=== PATIENT | male | born 1965 | race Caucasian/White ===

== ENCOUNTER 2021-04-26 05:17 | Emergency (ER) | payer OTHER ==
[~2021-04-26] VITALS: Ht 180.3 cm; Wt 81.6 kg
[2021-04-26 07:23] LABS: Basophils # (auto) 0 10 ^3/uL (0-0.2); Basophils % (auto) 0.4 % (0.0-2.0); Eosinophils # (auto) 0 10 ^3/uL (0-0.8); Eosinophils % (auto) 0.1 % (0.0-7.0); Hematocrit 32.8 % (41.0-53.0); Hemoglobin 11.6 g/dL (13.5-17.5); Lymphocytes # (auto) 1.4 10 ^3/uL (0.4-5.4); Mean Corpuscular Hemoglobin 32.5 pg (28.0-32.0); Mean Corpuscular Hgb Conc. 35.2 g/dL (32.0-36.0); Mean Corpuscular Volume 92.2 fL (80.0-100.0); Monocytes # (auto) 1.5 10 ^3/uL (0-1.3); Monocytes % (auto) 10.8 % (0.0-12.0); Neutrophils # (auto) 10.7 10 ^3/uL (1.6-8.6); Neutrophils % (auto) 78.7 % (37.0-80.0); Red Blood Cells 3.56 10^6/uL (4.5-5.90); Red Cell Distribution Width 12.8 % (11.8-14.3); White Blood Cell 13.7 10^3/uL (4.4-10.8)
[2021-04-26 07:52] LABS: Urine WBC None Seen /hpf (0 - 3)
[2021-04-26] MEDS ORDERED: DONNATAL 5ml ORAL Elix (BELLADONNA ALK-PHENOBARB) PO ONE (08:00)
[2021-04-26] MEDS ORDERED: ALUM & MAG HYDROX-SIMETH LIQ(MAALOX) 30 ML PO ONE (08:00)
[2021-04-26] MEDS ORDERED: SODIUM CHLORIDE 0.9% 1,000 ML IVB ONE (08:00)
[2021-04-26] MEDS ORDERED: PANTOPRAZOLE 40 MG TAB PO ONE (08:00)
[2021-04-26 08:02] LABS: Albumin 2.7 g/dL (3.4-5.0)
[2021-04-26 08:08] LABS: BUN/Creatinine Ratio 78.3; Bilirubin, Total 0.5 mg/dL (0.2-1.0); Total Protein 5.3 g/dL (6.4-8.2)
[2021-04-26 08:18] LABS: Urine Bacteria NONE SEEN /hpf (None Seen); Urine Blood Negative /uL (Negative); Urine Specific Gravity 1.019 (1.001-1.035)
[2021-04-26 09:06] LABS: Magnesium 1.9 mg/dL (1.6-2.6)
[2021-04-26] MEDS ORDERED: FOLIC ACID 1 MG, MULTIPLE VITAMIN 10 ML, MAGNESIUM SULF SDV 50% 8 MEQ, THIAMINE INJ 100... INJ SCH ×5 (12:00)
[2021-04-26] MEDS ORDERED: SODIUM CHLORIDE 0.9% 1,000 ML IV ONE (12:45)
[2021-04-26 14:10] LABS: Magnesium 2.6 mg/dL (1.6-2.6)
[2021-04-26 20:51] LABS: Alcohol, Urine < 3.0 mg/dL (0-10); Amphetamine Screen, Urine NEGATIVE (NEGATIVE); Barbiturate Scree,Urine NEGATIVE (NEGATIVE); Benzodiazephine Screen, Urine NEGATIVE (NEGATIVE); Cannabinoid Screen, Urine NEGATIVE (NEGATIVE); Cocaine Screen, Urine NEGATIVE (NEGATIVE); Opiate Scree,Urine NEGATIVE (NEGATIVE); Phencyclidine Screen, Urine NEGATIVE (NEGATIVE)
[2021-04-27 03:00] VITALS: BP 93/61
== END 2021-04-27 03:45 | disposition short-term general hospital (02) ==
LOC: ER 05:17 → EDBD 05:17 → ER 04-27 03:45
DX: R53.1 Weakness (principal); R73.9 Hyperglycemia, unspecified; F10.10 Alcohol abuse, uncomplicated; R77.8 Other specified abnormalities of plasma proteins; E44.0 Moderate protein-calorie malnutrition; R11.2 Nausea with vomiting, unspecified; F17.210 Nicotine dependence, cigarettes, uncomplicated; Y90.0 Blood alcohol level of less than 20 mg/100 ml; Z68.25 Body mass index [BMI] 25.0-25.9, adult
CPT/HCPCS: 36415; 71046; 80053; 80307; 81001; 83605; 83690; 83735; 83880; 84443; 84484; 85025; 93005; 96361; 96365; 99285; J3411; J3475; J7030

== ENCOUNTER 2024-07-26 12:31 | Inpatient (IN) | payer OTHER ==
[~2024-07-26] VITALS: Ht 185.4 cm; Wt 90.5 kg
[2024-07-26 13:10] LABS: Basophils # (auto) 0.1 10 ^3/uL (0-0.2); Eosinophils # (auto) 0 10 ^3/uL (0-0.8); Hematocrit 51.3 % (41.0-53.0); Neutrophils # (auto) 8.2 10 ^3/uL (1.6-8.6); Nucleated Red Blood Cells % 0.1 %; White Blood Cell 9.9 10^3/uL (4.4-10.8)
[2024-07-26 13:11] LABS: Basophils % (auto) 0.6 % (0.0-2.0); Hemoglobin 17.9 g/dL (13.5-17.5); Lymphocytes % (auto) 9.9 % (10.0-50.0); Mean Corpuscular Hemoglobin 34.3 pg (28.0-32.0); Mean Corpuscular Hgb Conc. 34.9 g/dL (32.0-36.0); Mean Corpuscular Volume 98.4 fL (80.0-100.0); Monocytes # (auto) 0.6 10 ^3/uL (0-1.3); Monocytes % (auto) 6.6 % (0.0-12.0); Neutrophils % (auto) 82.9 % (37.0-80.0); Platelet Count (auto) 284 10^3/uL (140-450); Red Blood Cells 5.21 10^6/uL (4.5-5.90); Red Cell Distribution Width 13.2 % (11.8-14.3)
[2024-07-26 13:15] LABS: Urine Bacteria None Seen /hpf (None Seen)
[2024-07-26 13:25] LABS: Alanine Aminotransferase 26 U/L (7-40); Albumin 4.6 g/dL (3.2-4.8); Alkaline Phosphatase 102 U/L (46-116); Anion Gap 5 (5-15); Aspartate Aminotransferase 23 U/L (13-40); BUN/Creatinine Ratio 14.3 (10.0-20.0); Bilirubin, Total 0.8 mg/dL (0.2-1.0); Blood Alcohol < 3.0 mg/dL (<10); Blood Urea Nitrogen 13 mg/dL (9-23); Calcium 10.1 mg/dL (8.7-10.4); Carbon Dioxide 30 mmol/L (20-31); Chloride 102 mmol/L (98-107); Glucose 125 mg/dL (74-106); Potassium 4.6 mmol/L (3.5-5.1); Sodium 137 mmol/L (136-145); Total Protein 7.6 g/dL (5.7-8.2)
[2024-07-26 13:36] LABS: Urine Blood Negative /uL (Negative); Urine Clarity Clear (Clear); Urine Color Yellow (Yellow); Urine Mucus FEW (None Seen); Urine Protein, UAD TRACE (Negative); Urine Specific Gravity 1.025 (1.001-1.035); Urine Urobilinogen Normal (Negative); Urine WBC 2 /hpf (0 - 3)
[2024-07-26 13:43] LABS: Lipase 28 U/L (12-53)
[2024-07-26] MEDS: SODIUM CHLORIDE 0.9% 1,000 ML IVB ONE (14:24)
[2024-07-26] MEDS: PANTOPRAZOLE 40 MG/10 ML VIAL INJ IV ONE (14:24)
[2024-07-26] MEDS: PROCHLORPERAZINE EDISYLATE 5 MG/ML 2ML VIAL IV ONE (14:24)
[2024-07-26 15:33] VITALS: TEMP 98.1; O2SAT 98
[2024-07-26] MEDS: MORPHINE SULFATE 4 MG/ML SYR/VIAL IV ONE (15:47)
[2024-07-26 16:20] VITALS: BP 106/76; PULSE 78; RESP 20
[2024-07-26] MEDS ORDERED: MORPHINE SULFATE INJ 2 MG/ml SYRG IV PRN (16:45)
[2024-07-26] MEDS ORDERED: HYDROcodone-ACET 5/325MG TAB PO PRN (16:45)
[2024-07-26] MEDS ORDERED: ACETAMINOPHEN 325 MG TAB PO PRN (16:45)
[2024-07-26] MEDS ORDERED: ONDANSETRON HCL 4 MG/2 ML VIAL IV PRN (16:45)
[2024-07-26] MEDS ORDERED: SUCRALFATE 1 GM/10 ML ORAL SUSP GT SCH (17:00)
[2024-07-26] MEDS ORDERED: PANTOPRAZOLE 40 MG/10 ML VIAL INJ IV SCH (22:00)
== END 2024-07-26 18:34 | disposition left against medical advice (07) | DRG 392 ==
LOC: ER 12:31 → OVERFLOW 16:46
PROVIDERS: ADMIT Internal Medicine; ATTEND Internal Medicine
DX: K29.20 Alcoholic gastritis without bleeding (principal); F17.210 Nicotine dependence, cigarettes, uncomplicated; F10.10 Alcohol abuse, uncomplicated; K21.9 Gastro-esophageal reflux disease without esophagitis; Y90.9 Presence of alcohol in blood, level not specified; Z82.49 Family history of ischemic heart disease and other diseases of the circulatory system; Z91.199 Patient's noncompliance with other medical treatment and regimen due to unspecified reason; Z87.11 Personal history of peptic ulcer disease
CPT/HCPCS: 36415; 76705; 80053; 80320; 81001; 83690; 85025; 96361; 96374; 96375; G0378; J2470